=== PATIENT | female | born 1995 | race Caucasian/White ===

== ENCOUNTER 2017-12-11 18:36 | Emergency (ER) | payer OTHER ==
[~2017-12-11] VITALS: Ht 165.1 cm; Wt 81.6 kg
[~2017-12-11 18:36] MED LIST: AMOXIL500 MG PO; ANAPROX DS550 MG PO; ATARAX25 MG PO; AUGMENTIN 875875 MG PO; DEPO PROVER150 MG/M1 IM; FLEXERIL5 MG PO; LAMICTAL100 MG PO; MACROBID100 M1 PO; MOTRIN400 MG PO; MOTRIN600 MG PO; MOTRIN800 MG PO; OMEPRAZOLE40 MG PO; PERCOCET 325 MG1 TA2 PO; PREDNICOT20 MG PO; PREDNISONE20 MG PO; SPRINTEC 35 MCG1 TA1 PO; ZANTAC150 MG PO; ZOFRAN ODT4 MG SL; ZOFRAN4 MG PO
[2017-12-11 18:50] VITALS: BP 122/78
[2017-12-11 19:29] LABS: BASO % 0.4 % (0.0-1.0); EOS # 0.4 10*3/uL (0.0-0.4); EOS % 3.9 % (1.0-4.0); HEMATOCRIT 34.3 % (37.0-47.0); HEMOGLOBIN 11.7 g/dl (12.0-16.0); LYMPH # 2.1 10*3/uL (1.3-4.4); MEAN CELL VOLUME 89.8 fl (81.0-99.0); MEAN CORPUSCULAR HGB 30.6 pg (27.0-31.0); MEAN CORPUSCULAR HGB CONC 34.1 g/dl (33.0-37.0); MEAN PLATELET VOLUME 8.6 fl (9.6-12.3); MONO # 1.1 10*3/uL (0.1-1.0); MONO % 10.1 % (3.0-9.0); NEUT # 7.1 10*3/uL (2.3-7.9); NEUT % 65.4 % (47.0-73.0); PLATELET COUNT AUTOMATED 260 10*3/uL (130-400); RED BLOOD COUNT 3.82 10*6/uL (4.10-5.10); WHITE BLOOD COUNT 10.9 10*3/uL (4.8-10.8)
[2017-12-11 19:48] LABS: ALBUMIN 2.7 gm/dl (3.1-4.5); ALKALINE PHOSPHATASE 76 U/L (45-117); BUN 6 mg/dl (7-24); CHLORIDE 107 mmol/L (98-107); CREATININE 0.45 mg/dL (0.55-1.02); SGOT/AST 18 IU/L (3-35); SGPT/ALT 20 U/L (12-78); SODIUM 138 mmol/L (136-145); TOTAL PROTEIN 6.8 gm/dL (6.4-8.2)
[2017-12-11] MEDS ORDERED: AMOXICILLIN500 M2 PO (20:30)
== END 2017-12-11 20:34 | disposition home or self-care (01) ==
LOC: ED 18:36
PROVIDERS: Physician Assistant
DX: O99.512 Diseases of the respiratory system complicating pregnancy, second trimester (principal); J06.9 Acute upper respiratory infection, unspecified; O99.332 Smoking (tobacco) complicating pregnancy, second trimester; Z3A.23 23 weeks gestation of pregnancy; Z79.899 Other long term (current) drug therapy; Z98.890 Other specified postprocedural states

== ENCOUNTER 2019-04-04 14:42 | Emergency (ER) | payer OTHER ==
[~2019-04-04] VITALS: Ht 167.6 cm; Wt 81.6 kg
[~2019-04-04 14:42] MED LIST changes: +AMOXICILLIN500 M2 PO
[2019-04-04 14:43] VITALS: BP 141/82
[2019-04-04 15:12] LABS: BILIRUBIN NEGATIVE (NEGATIVE); BLOOD 3+ (NEGATIVE); CLARITY CLOUDY (CLEAR); COLOR YELLOW (YELLOW); GLUCOSE NEGATIVE (NEGATIVE); KETONE NEGATIVE (NEGATIVE); LEUKO ESTERASE 1+ (NEGATIVE); NITRITE POSITIVE (NEGATIVE); PH 6.5 (5.0-9.0); UROBILINOGEN 0.2 E.U./dl (0.2-1.0)
[2019-04-04 15:20] LABS: BACTERIA 3+; RBC 51-100 rbc/hpf (0-2); WBC 51-100 wbc/hpf (0-5)
[2019-04-04] MEDS ORDERED: PYRIDIUM200 M1 PO (15:31)
[2019-04-04] MEDS ORDERED: SEPTDS PO (15:31)
== END 2019-04-04 15:45 | disposition home or self-care (01) ==
LOC: ED 14:42
PROVIDERS: Physician Assistant
DX: N39.0 Urinary tract infection, site not specified (principal); Z79.2 Long term (current) use of antibiotics

== ENCOUNTER 2019-11-13 19:30 | Emergency (ER) | payer OTHER ==
[~2019-11-13] VITALS: Ht 165.1 cm; Wt 72.6 kg
[~2019-11-13 19:30] MED LIST changes: +PYRIDIUM200 M1 PO; +SEPTDS PO
[2019-11-13 19:39] VITALS: BP 145/85
[2019-11-13] MEDS ORDERED: IBU800 MG PO (21:19)
[2019-11-13] MEDS ORDERED: CYCLOBENZAPRINE10 MG PO (21:19)
== END 2019-11-13 21:21 | disposition home or self-care (01) ==
LOC: ED 19:30
DX: S06.0X0A Concussion without loss of consciousness, initial encounter (principal); S16.1XXA Strain of muscle, fascia and tendon at neck level, initial encounter; W18.31XA Fall on same level due to stepping on an object, initial encounter; Y93.89 Activity, other specified; Y92.89 Other specified places as the place of occurrence of the external cause; Y99.8 Other external cause status